=== PATIENT | female | born 1980 | race Caucasian/White ===

== ENCOUNTER 2019-01-03 06:00 | Emergency (ER) | payer MEDICAID ==
[~2019-01-03] VITALS: Ht 154.9 cm; Wt 64.5 kg
[2019-01-03 06:03] VITALS: BP 108/72
--- NOTE | 2019-01-03 06:05 | NUR ---
PT BIB SON C/O EPIGASTRIC PAIN. PT STATES SHE HAS HAD UPPER ABD X1 MONTH BUT IT THE WORST TODAY, PT STATES INTERMITTENT 10/10, BURNING, PAIN, NON-RADIATING. UPPER ABD IS SOFT, AND TENDER TO TOUCH; NO REDNESS OR SWELLING NOTED. PT DENIES TRAUMA. +NAUSEA. SKIN IS WARM, DRY AND INTACT. AAOX4. CLEAR SPEACH. --PT IN GOWN IN BED; BED IN LOWER LOCKED POSITION. ER MD MADE AWARE OF PT STATUS. WILL CONTINUE TO MONITOR. PMH: DENIES RX: DENIES
[2019-01-03] MEDS ORDERED: KETOROLAC 30 MG/ML VIAL IVP ONE (06:20)
[2019-01-03] MEDS ORDERED: ONDANSETRON 4 MG/2 ML VIAL IVP ONE (06:20)
[2019-01-03] MEDS ORDERED: NACL 0.9% 500 ML IV ONE (06:20)
--- NOTE | 2019-01-03 06:40 | NUR ---
IV START: 20G, L AC. FLUSHED WELL W/O RESISTANCE, NO REDNESS OR SWELLING NOTED, PT TOLERATED WELL.
--- NOTE | 2019-01-03 06:45 | NUR ---
US AT BEDSIDE.
--- NOTE | 2019-01-03 07:15 | NUR ---
Pt report given to CAITLYN Evans. Transfer of care at this time.
[2019-01-03 08:06] LABS: BASOPHILS % (AUTO) 0.8 % (0.0-2.0); EOSINOPHILS # (AUTO) 0.1 K/uL (0-0.4); EOSINOPHILS % (AUTO) 2.1 % (0.0-4.0); HEMATOCRIT 36.4 % (36-48); HEMOGLOBIN 12.1 g/dL (12.0-16.0); LYMPHOCYTES # (AUTO) 0.7 K/uL (2.5-16.5); LYMPHOCYTES % (AUTO) 12.3 % (20.5-51.1); MEAN CORPUSCULAR HEMOGLOBIN 29 pg (27-31); MEAN CORPUSCULAR HGB CONC 33 g/dL (33-37); MEAN CORPUSCULAR VOLUME 86.1 fL (80-94); MONOCYTES # (AUTO) 0.6 K/uL (0.8-1.0); MONOCYTES % (AUTO) 10.1 % (1.7-9.3); NEUTROPHILS # (AUTO) 4.4 K/uL (1.8-7.7); NEUTROPHILS % (AUTO) 74.7 % (42.2-75.2); PLATELET COUNT (AUTO) 167 K/uL (140-450); RED BLOOD CELL COUNT(AUTO) 4.22 MIL/uL (4.20-5.40); RED CELL DISTRIBUTION WIDTH 14.1 % (11.6-13.7); WHITE BLOOD COUNT (AUTO) 5.9 K/uL (4.8-10.8)
[2019-01-03 08:24] LABS: ANION GAP 12.5 (8-16); CARBON DIOXIDE 25.5 mmol/L (21-32); CREATININE 0.7 mg/dL (0.6-1.3)
[2019-01-03 08:29] LABS: ALBUMIN 3.6 g/dL (3.4-5.0); TOTAL BILIRUBIN 0.2 mg/dL (0.0-1.0)
--- NOTE | 2019-01-03 08:55 | NUR ---
DR. ROSE AT BEDSIDE
[2019-01-03 09:30] LABS: APPEARANCE,URINE CLEAR (CLEAR); BILIRUBIN,URINE NEGATIVE (NEGATIVE); BLOOD, URINE NEGATIVE (NEGATIVE); LEUKOCYTE ESTERASE ,URINE NEGATIVE (NEGATIVE); NITRITE, URINE NEGATIVE (NEGATIVE); UGLUCOSE NEGATIVE (NEGATIVE)
[2019-01-03 10:10] LABS: COLOR,URINE PALE YELLOW (YELLOW)
[2019-01-03 10:48] VITALS: BP 92/56
--- NOTE | 2019-01-03 10:48 | NUR ---
Patient discharged with v/s stable. Written and verbal after care instructions given and explained. Patient alert, oriented and verbalized understanding of instructions. Ambulatory with steady gait. All questions addressed prior to discharge. ID band removed. Patient advised to follow up with PMD. Rx of pepcid and protonix given. Patient educated on indication of medication including possible reaction and side effects. Opportunity to ask questions provided and answered.
== END 2019-01-03 10:48 | disposition home or self-care (01) ==
LOC: MED 06:00
DX: K29.70 Gastritis, unspecified, without bleeding (principal); M54.9 Dorsalgia, unspecified
CPT/HCPCS: 36415; 76705; 80053; 81003; 81025; 83690; 85025; 96361; 96374; 96375; 99284; J1885; J2405; J7030; Q0092

== ENCOUNTER 2023-09-21 18:07 | Emergency (ER) | payer MEDICAID ==
[~2023-09-21] VITALS: Ht 157.5 cm; Wt 63.5 kg
[2023-09-21 18:27] VITALS: BP 124/80; PULSE 79; RESP 17; TEMP 97; O2SAT 98
[2023-09-21 20:13] LABS: BASOPHILS % (AUTO) 0.5 % (0.0-2.0); EOSINOPHILS # (AUTO) 0.2 K/uL (0-0.4); EOSINOPHILS % (AUTO) 1.7 % (0.0-4.0); HEMATOCRIT 37.5 % (36-48); HEMOGLOBIN 12.4 g/dL (12.0-16.0); LYMPHOCYTES # (AUTO) 2.7 K/uL (2.5-16.5); LYMPHOCYTES % (AUTO) 29.5 % (20.5-51.1); MEAN CORPUSCULAR HEMOGLOBIN 29 pg (27-31); MEAN CORPUSCULAR HGB CONC 33 g/dL (33-37); MONOCYTES # (AUTO) 0.5 K/uL (0.8-1.0); MONOCYTES % (AUTO) 5.9 % (1.7-9.3); NEUTROPHILS # (AUTO) 5.7 K/uL (1.8-7.7); NEUTROPHILS % (AUTO) 62.4 % (42.2-75.2); PLATELET COUNT (AUTO) 227 K/uL (140-450); RED BLOOD CELL COUNT(AUTO) 4.36 MIL/uL (4.20-5.40); RED CELL DISTRIBUTION WIDTH 14.3 % (11.6-13.7); WHITE BLOOD COUNT (AUTO) 9.2 K/uL (4.8-10.8)
[2023-09-21 20:42] LABS: ALANINE AMINOTRANSFERASE 22 U/L (12-78); ALBUMIN 3.9 g/dL (3.4-5.0); ALKALINE PHOSPHATASE 94 U/L (50-136); ANION GAP 13.2 (8-16); ASPARTATE AMINOTRANSFERASE 13 U/L (15-37); CALCIUM 8.7 mg/dL (8.5-10.1); CARBON DIOXIDE 28.5 mmol/L (21-32); CHLORIDE 105 mmol/L (98-107); CREATININE 0.8 mg/dL (0.6-1.3); GFR ARICAN-AMERICAN 100 mL/min (>90); GFR NON ARICAN-AMERICAN 82 mL/min (>90); GLUCOSE 113 mg/dL (74-106); POTASSIUM 3.7 mmol/L (3.5-5.1); SODIUM SERUM 143 mmol/L (136-145); TOTAL BILIRUBIN 0.2 mg/dL (0.0-1.0); TOTAL PROTEIN, SERUM 7.6 g/dL (6.4-8.2); UREA NITROGEN, BLOOD 17 mg/dL (7-18)
== END 2023-09-21 22:40 | disposition home or self-care (01) ==
LOC: MED 18:07
DX: R07.89 Other chest pain (principal)
CPT/HCPCS: 36415; 71045; 80053; 84484; 85025; 93005; 99285

== ENCOUNTER 2023-11-23 10:01 | Emergency (ER) | payer MEDICAID ==
[~2023-11-23] VITALS: Ht 157.5 cm; Wt 59.0 kg
[2023-11-23 10:07] VITALS: BP 116/74; PULSE 80; RESP 20; TEMP 97.8; O2SAT 97
[2023-11-23 11:31] LABS: BASOPHILS # (AUTO) 0.1 K/uL (0.00-0.22); BASOPHILS % (AUTO) 0.8 % (0.0-2.0); EOSINOPHILS # (AUTO) 0.2 K/uL (0-0.4); EOSINOPHILS % (AUTO) 1.5 % (0.0-4.0); HEMATOCRIT 37.8 % (36-48); HEMOGLOBIN 12.8 g/dL (12.0-16.0); LYMPHOCYTES # (AUTO) 2.2 K/uL (2.5-16.5); LYMPHOCYTES % (AUTO) 21.5 % (20.5-51.1); MEAN CORPUSCULAR HEMOGLOBIN 29 pg (27-31); MEAN CORPUSCULAR HGB CONC 34 g/dL (33-37); MEAN CORPUSCULAR VOLUME 85.6 fL (80-94); MONOCYTES # (AUTO) 0.6 K/uL (0.8-1.0); NEUTROPHILS # (AUTO) 7.2 K/uL (1.8-7.7); NEUTROPHILS % (AUTO) 70.2 % (42.2-75.2); PLATELET COUNT (AUTO) 192 K/uL (140-450); RED BLOOD CELL COUNT(AUTO) 4.42 MIL/uL (4.20-5.40); RED CELL DISTRIBUTION WIDTH 13.6 % (11.6-13.7); WHITE BLOOD COUNT (AUTO) 10.3 K/uL (4.8-10.8)
[2023-11-23 11:40] LABS: APPEARANCE,URINE CLEAR (CLEAR); BILIRUBIN,URINE NEGATIVE (NEGATIVE); BLOOD, URINE NEGATIVE (NEGATIVE); COLOR,URINE YELLOW (YELLOW); LEUKOCYTE ESTERASE ,URINE NEGATIVE (NEGATIVE); NITRITE, URINE POSITIVE (NEGATIVE); PROTEIN,URINE NEGATIVE (NEGATIVE); UGLUCOSE NEGATIVE (NEGATIVE); UROBILINOGEN,URINE 0.2 EU/dL (0.2 - 1)
[2023-11-23 11:55] LABS: ALBUMIN 3.3 g/dL (3.4-5.0); ANION GAP 9.4 (8-16); CALCIUM 8.8 mg/dL (8.5-10.1); CARBON DIOXIDE 28.5 mmol/L (21-32); CREATININE 0.6 mg/dL (0.6-1.3); POTASSIUM 3.9 mmol/L (3.5-5.1); TOTAL BILIRUBIN 0.3 mg/dL (0.0-1.0); TOTAL PROTEIN, SERUM 7.9 g/dL (6.4-8.2)
[2023-11-23 12:00] LABS: BACTERIA,URINE FEW /HPF (None Seen); RBC,URINE 0-5 /HPF (0-5); SQUAMOUS EPITHELIAL CELL,UR 0-3 (FEW) /LPF (0-3 (FEW)); WBC,URINE 0-5 /HPF (0-5)
[2023-11-23] MEDS ORDERED: KETOROLAC 30 MG/ML VIAL IM ONE (13:15)
[2023-11-23] MEDS ORDERED: IBUP-1842 PO (14:05)
[2023-11-23] MEDS ORDERED: CYCL-711 PO (14:05)
[2023-11-23] MEDS ORDERED: LID5T TP (14:06)
[2023-11-23] MEDS ORDERED: CEPH-588 PO (14:11)
[2023-11-23 15:08] VITALS: BP 120/80; PULSE 74; RESP 20; TEMP 98; O2SAT 99
== END 2023-11-23 15:08 | disposition home or self-care (01) ==
LOC: MED 10:01
DX: N39.0 Urinary tract infection, site not specified (principal); N20.0 Calculus of kidney; M54.50 Low back pain, unspecified; Z79.899 Other long term (current) drug therapy
CPT/HCPCS: 36415; 74176; 80053; 81001; 81025; 83690; 85025; 96372; 99285; J1885